=== PATIENT | male | born 1980 | race Caucasian/White ===

== ENCOUNTER 2020-09-05 09:01 | Emergency (ER) | payer OTHER ==
[2020-09-05 09:10] VITALS: BMI 31.9
[2020-09-05 09:56] LABS: PH,URINE 5.5 (5.0-8.0); URINE APPEARANCE CLEAR; URINE BILIRUBIN NEGATIVE (NEGATIVE); URINE COLOR DK YELLOW; URINE GLUCOSE (UA) NEGATIVE (NEGATIVE); URINE KETONE TRACE (NEGATIVE); URINE LEUK ESTERASE NEGATIVE (NEGATIVE); URINE NITRITE NEGATIVE (NEGATIVE); URINE PROTEIN NEGATIVE (NEGATIVE)
[2020-09-05] MEDS ORDERED: ACETAMINOPHEN 500 MG TABLET (FP) PO ONE (11:01)
[2020-09-05 11:36] VITALS: BP 105/65; PULSE 67; TEMP 98.2
== END 2020-09-05 11:15 | disposition home or self-care (01) ==
LOC: JER 09:01
DX: N43.3 Hydrocele, unspecified (principal)
CPT/HCPCS: 36415; 76870-TC; 81003; 87086; 87491; 87591; 99284-25

== ENCOUNTER 2021-07-17 04:07 | Emergency (ER) | payer OTHER ==
[2021-07-17 04:45] VITALS: BP 106/62; PULSE 58; TEMP 98.2; BMI 30.4
[2021-07-17] MEDS ORDERED: ACETAMINOPHEN 325 MG TABLET (FP) PO ONE (05:29)
== END 2021-07-17 07:03 | disposition home or self-care (01) ==
LOC: JER 04:07
DX: J02.8 Acute pharyngitis due to other specified organisms (principal)
CPT/HCPCS: 87880; 99283-25